=== PATIENT | male | born 1990 | race Two or more races ===

== ENCOUNTER 2020-08-31 10:36 | Emergency (ER) | payer BC, OTHER ==
[~2020-08-31] VITALS: Ht 170.2 cm; Wt 65.8 kg
[2020-08-31 11:08] VITALS: BP 117/80
== END 2020-08-31 12:16 | disposition home or self-care (01) ==
LOC: ER 10:36
DX: H60.92 Unspecified otitis externa, left ear (principal); J03.90 Acute tonsillitis, unspecified